=== PATIENT | male | born 1955 | race Caucasian/White ===

== ENCOUNTER → 2017-09-14 14:35 | Outpatient (CLI) | payer BC | END | disposition home or self-care (01) | LOC: D.US 08:00 | DX: R41.0 Disorientation, unspecified (principal); R42 Dizziness and giddiness; R74.9 Abnormal serum enzyme level, unspecified; R10.812 Left upper quadrant abdominal tenderness ==

== ENCOUNTER → 2017-09-17 09:01 | Outpatient (CLI) | payer BC | END | disposition home or self-care (01) | LOC: D.US 09:01 | DX: R74.9 Abnormal serum enzyme level, unspecified (principal); R10.12 Left upper quadrant pain ==

== ENCOUNTER → 2018-06-17 10:33 | Outpatient (CLI) | payer BC | END | disposition home or self-care (01) | LOC: D.MRI 10:33 | DX: M54.12 Radiculopathy, cervical region (principal) ==

== ENCOUNTER 2018-07-05 06:18 | Observation (INO) | payer BC ==
[~2018-07-05] VITALS: Ht 170.2 cm; Wt 79.4 kg
--- NOTE | 2018-07-05 06:35 | NUR ---
URINE SPECIMEN SENT TO LAB.
[2018-07-05 06:56] LABS: BASOPHILS 0.5 % (0-2); EOSINOPHILS 1.8 % (0-7); HEMATOCRIT 45.3 % (42.0-54.0); HEMOGLOBIN 15.9 g/dL (13.5-17.5); IMMATURE GRANULOCYTES 0.7 % (0-5); LYMPHOCYTES 34.6 % (15-50); MCH 31.5 pg (26.0-34.0); MCHC 35.1 g/dL (31.0-37.0); MCV 89.7 fL (80.0-100.0); MEAN PLATELET VOLUME 9.2 fL (7.4-10.4); MONOCYTES 5.9 % (2-11); NEUTROPHILS 56.5 % (40-80); PLATELET COUNT 158 10x3/uL (130-400); RBC 5.05 10x6/uL (4.20-6.10); RDW 12.9 % (11.5-14.5); WBC 5.6 10x3/uL (4.8-10.8)
[2018-07-05 07:08] LABS: APPEARANCE CLEAR (CLEAR); BILIRUBIN NEGATIVE (NEGATIVE); COLOR YELLOW (YELLOW); GLUCOSE NEGATIVE (NEGATIVE); KETONE NEGATIVE (NEGATIVE); NITRITE NEGATIVE (NEGATIVE); PROTEIN NEGATIVE (NEGATIVE); SPECIFIC GRAVITY 1.015 (1.005-1.020); UROBILINOGEN NORMAL (NORMAL)
[2018-07-05 07:09] LABS: ALBUMIN 3.6 g/dL (3.4-5.0); ALKALINE PHOSPHATASE 50 U/L (46-116); ALT (SGPT) 20 U/L (10-68); BILIRUBIN - TOTAL 1.37 mg/dL (0.2-1.3); CALC OSMOLALITY 284 mosm/kg (275-300); CALCIUM 8.4 mg/dL (8.5-10.1); CARBON DIOXIDE 27.9 mmol/L (21.0-32.0); CHLORIDE - SERUM 107 mmol/L (98-107); CREATININE - SERUM 1.1 mg/dL (0.6-1.3); GLUCOSE 100 mg/dL (74-106); POTASSIUM - SERUM 4.2 mmol/L (3.5-5.1); PROTEIN - SERUM 7.1 g/dL (6.4-8.2); SODIUM 142 mmol/L (136-145); UREA NITROGEN 18 mg/dL (7-18); eGFR NON AFRICAN AMERICAN 72 mL/min (90-120)
[2018-07-05 07:20] LABS: LIPASE 102 U/L (73-393); THYROID STIMULATING HORMONE 3.01 uIU/mL (0.36-3.74); TROPONIN-I < 0.017 ng/mL (0.000-0.060)
[2018-07-05 07:24] LABS: AMYLASE - SERUM 961 U/L (25-115)
[2018-07-05 11:30] VITALS: BP 146/87
--- NOTE | 2018-07-05 12:47 | NUR ---
LUNCH TRAY PROV' TO PT. PT DENIES ANY NEEDS AT PRESENT TIME. PT STABLE WITH EQUAL NON LABORED RR.
[2018-07-05 13:30] VITALS: BP 110/83
[2018-07-05 15:30] VITALS: BP 134/82
[2018-07-05 17:30] VITALS: BP 117/88
--- NOTE | 2018-07-05 19:39 | NUR ---
PT AMBULATED TO RESTROOM WITH A STEADY GAIT. NO S/S OF ACUTE DISTRESS NOTED AT THIS TIME. PT SPOUSE AT BEDSIDE.
[2018-07-05 19:42] VITALS: BP 125/85
[2018-07-05 23:20] VITALS: BP 117/80
[2018-07-05] MEDS ORDERED: ASPIRIN EC81 M1 PO (23:20)
[2018-07-06 04:00] VITALS: BP 128/86
--- NOTE | 2018-07-06 06:26 | NUR ---
REPORT CALLED BY MASSIMO IN ER. ARRIVED TO FLOOR IN W/C ACCOMPANIED BY STAFF AND SPOUSE. ALERT AND ORIENTED. NO C/O VOICED THIS SHIFT. WILL CONT. POC.
[2018-07-06 07:38] LABS: BASOPHILS 0.1 % (0-2); EOSINOPHILS 0.1 % (0-7); HEMOGLOBIN 15.1 g/dL (13.5-17.5); IMMATURE GRANULOCYTES 0.2 % (0-5); LYMPHOCYTES 17.3 % (15-50); MCH 31.4 pg (26.0-34.0); MCHC 35.1 g/dL (31.0-37.0); MCV 89.4 fL (80.0-100.0); MEAN PLATELET VOLUME 9.6 fL (7.4-10.4); MONOCYTES 7.2 % (2-11); NEUTROPHILS 75.1 % (40-80); PLATELET COUNT 178 10x3/uL (130-400); RBC 4.81 10x6/uL (4.20-6.10); RDW 13.2 % (11.5-14.5)
[2018-07-06 07:39] LABS: WBC 10.7 10x3/uL (4.8-10.8)
[2018-07-06 07:58] VITALS: BP 149/83
--- NOTE | 2018-07-06 07:58 | NUR ---
SHIFT ASSESSMENT COMPLETED AT THIS TIME. PT IS AAOX3, HR-RRR, PPP, BREATH SOUNDS CLEAR & UNLABORED X2, BOWEL SOUNDS ACTIVE X4. PT DENIES PAIN N/V/D OR NEEDS. PIV TO LT HAND C/D/I WITH NS INFUSING AT 125ML/HR VIA ALARIS PUMP. BED LOW, WHEELS LOCKED, CALL LIGHT AND PHONE WITHIN REACH, SIDE RAILS UP X2.
[2018-07-06 08:05] LABS: ALKALINE PHOSPHATASE 48 U/L (46-116); ALT (SGPT) 18 U/L (10-68); CALC OSMOLALITY 285 mosm/kg (275-300); CALCIUM 7.6 mg/dL (8.5-10.1); CARBON DIOXIDE 23.9 mmol/L (21.0-32.0); CHLORIDE - SERUM 110 mmol/L (98-107); GLUCOSE 105 mg/dL (74-106); POTASSIUM - SERUM 3.7 mmol/L (3.5-5.1); PROTEIN - SERUM 6.2 g/dL (6.4-8.2); SODIUM 143 mmol/L (136-145); UREA NITROGEN 16 mg/dL (7-18); eGFR NON AFRICAN AMERICAN 81 mL/min (90-120)
[2018-07-06 09:03] VITALS: Ht 170.2 cm; Wt 79.4 kg
--- NOTE | 2018-07-06 11:35 | NUR ---
PT AMB ON UNIT AT THIS TIME. DENIES PAIN OR NEEDS.
--- NOTE | 2018-07-06 11:58 | NUR ---
DR ARREDONDO ON UNIT AND TO PT ROOM TO DISCUSS POC.
[2018-07-06] MEDS ORDERED: PROTONIX40 MG PO (12:07)
--- NOTE | 2018-07-06 12:09 | NUR ---
DR ARREDONDO ON UNIT. V/O TO HAVE SED RATE DRAWN AND PT MAY D/C TO HOME ONCE IT IS DRAWN. HE WOULD LIKE RESULTS CALLED TO HIM.
[2018-07-06 13:50] LABS: ERYTHROCYTE SEDIMENTATION RATE 1 mm/hr (0-20)
--- NOTE | 2018-07-06 14:03 | NUR ---
D/C INSTRUCTIONS EXPLAINED, SIGNED, AND WITNESSED. PT OFFERS NO FURTHER QUESTIONS OR CONCERNS. PT AMB OFF UNIT PER REQUEST AND IN NO ACUTE DISTRESS.
== END 2018-07-06 14:03 | disposition home or self-care (01) ==
LOC: D.ER 06:18 → D.EDHOLD 10:57 → D.WS 10:57 → OBSVTIME 10:57 → D.EDHOLD 10:57 → D.WS 20:05
PROVIDERS: Family Medicine; ADMIT Internal Medicine Nephrology
DX: R51 Headache (principal); I10 Essential (primary) hypertension; K21.9 Gastro-esophageal reflux disease without esophagitis; R74.8 Abnormal levels of other serum enzymes

== ENCOUNTER 2018-07-24 02:27 | Observation (INO) | payer BC ==
[~2018-07-24] VITALS: Ht 170.2 cm; Wt 79.5 kg
[~2018-07-24 02:27] MED LIST: ASPIRIN EC81 M1 PO; PROTONIX40 MG PO
[2018-07-24] MEDS ORDERED: MIRALAX17 GM PO (02:35)
[2018-07-24] MEDS ORDERED: KLONOPIN0.5 MG PO (02:35)
[2018-07-24] MEDS ORDERED: LISINOPRIL20 MG PO (02:35)
[2018-07-24 03:35] LABS: BASOPHILS 0.2 % (0-2); EOSINOPHILS 0.3 % (0-7); HEMATOCRIT 46.9 % (42.0-54.0); HEMOGLOBIN 16.6 g/dL (13.5-17.5); IMMATURE GRANULOCYTES 0.5 % (0-5); LYMPHOCYTES 20.6 % (15-50); MCH 31.8 pg (26.0-34.0); MCHC 35.4 g/dL (31.0-37.0); MCV 89.8 fL (80.0-100.0); MEAN PLATELET VOLUME 9.4 fL (7.4-10.4); MONOCYTES 11.1 % (2-11); NEUTROPHILS 67.3 % (40-80); PLATELET COUNT 201 10x3/uL (130-400); RBC 5.22 10x6/uL (4.20-6.10); RDW 13.2 % (11.5-14.5); WBC 11.4 10x3/uL (4.8-10.8)
[2018-07-24 03:38] LABS: APPEARANCE CLEAR (CLEAR); COLOR YELLOW (YELLOW); NITRITE NEGATIVE (NEGATIVE); PROTEIN NEGATIVE (NEGATIVE)
[2018-07-24 03:39] LABS: BILIRUBIN NEGATIVE (NEGATIVE); GLUCOSE NEGATIVE (NEGATIVE); KETONE NEGATIVE (NEGATIVE); UROBILINOGEN NORMAL (NORMAL)
[2018-07-24 03:44] LABS: ALBUMIN 3.6 g/dL (3.4-5.0); ALKALINE PHOSPHATASE 66 U/L (46-116); ALT (SGPT) 39 U/L (10-68); BILIRUBIN - TOTAL 1.25 mg/dL (0.2-1.3); CALC OSMOLALITY 279 mosm/kg (275-300); CALCIUM 8.3 mg/dL (8.5-10.1); CARBON DIOXIDE 26.5 mmol/L (21.0-32.0); CHLORIDE - SERUM 104 mmol/L (98-107); CREATININE - SERUM 1.2 mg/dL (0.6-1.3); GLUCOSE 102 mg/dL (74-106); POTASSIUM - SERUM 4.4 mmol/L (3.5-5.1); PROTEIN - SERUM 7.2 g/dL (6.4-8.2); SODIUM 139 mmol/L (136-145); UREA NITROGEN 18 mg/dL (7-18); eGFR NON AFRICAN AMERICAN 66 mL/min (90-120)
[2018-07-24 03:46] LABS: AMYLASE - SERUM 61 U/L (25-115); LIPASE 83 U/L (73-393)
[2018-07-24 03:47] LABS: TROPONIN-I < 0.017 ng/mL (0.000-0.060)
[2018-07-24 06:42] VITALS: BP 123/66; BMI 27.4
[2018-07-24 08:59] VITALS: BP 124/77
--- NOTE | 2018-07-24 11:11 | NUR ---
ALERT AND ORIENTED COMPLAINING OF RT. FLANK PAIN 08/29. NORC5/325 GIVEN FOR PAIN AND EFFECTIVE. SLIGHT TENDERNESS NOTED TO LEFT FLANK ON PALPATION BS NOTED X 4. ABDOMEN SOFT. ENCOURAGED FLUIDS AND TO USE CALL LIGHT FOR ASSIST.
[2018-07-24 13:20] VITALS: BP 127/77
[2018-07-24 17:21] VITALS: BP 126/81
[2018-07-24 18:21] LABS: ERYTHROCYTE SEDIMENTATION RATE 3 mm/hr (0-20)
--- NOTE | 2018-07-24 19:00 | NUR ---
REPORT RECEIVED AND CARE OF PT ASSUMED. PT LYING IN [place]'S POSITION VISITING WITH FAMILY MEMBERS. IV IN RIGHT FA SALINE LOCKED. WILL MONITOR FOR NEEDS.
[2018-07-24 19:56] VITALS: BP 113/65
--- NOTE | 2018-07-24 22:05 | NUR ---
HS MEDICATIONS GIVEN TO INCLUDE NORCO PO FOR PAIN, PER PRN ORDER. WILL MONITOR FOR EFFECTIVENESS. IS AT BEDSIDE.
[2018-07-25] VITALS: BP 108/63
[2018-07-25 04:00] VITALS: BP 116/76
[2018-07-25 06:33] LABS: BASOPHILS 0.2 % (0-2); EOSINOPHILS 0.2 % (0-7); HEMATOCRIT 43.4 % (42.0-54.0); HEMOGLOBIN 15.2 g/dL (13.5-17.5); IMMATURE GRANULOCYTES 0.9 % (0-5); LYMPHOCYTES 19.5 % (15-50); MCH 31.4 pg (26.0-34.0); MCV 89.7 fL (80.0-100.0); MEAN PLATELET VOLUME 9.5 fL (7.4-10.4); MONOCYTES 11.5 % (2-11); NEUTROPHILS 67.7 % (40-80); PLATELET COUNT 178 10x3/uL (130-400); RBC 4.84 10x6/uL (4.20-6.10); RDW 13.1 % (11.5-14.5); WBC 10.1 10x3/uL (4.8-10.8)
[2018-07-25 06:44] LABS: ANION GAP 14.5 mmol/L (8-16); CALCIUM 8.2 mg/dL (8.5-10.1); CARBON DIOXIDE 24.6 mmol/L (21.0-32.0); CREATININE - SERUM 1.2 mg/dL (0.6-1.3); POTASSIUM - SERUM 4.1 mmol/L (3.5-5.1)
--- NOTE | 2018-07-25 09:08 | NUR ---
ALERT AND ORIENTED WITH PRESENT. RT. FLANK PAIN NOTED ON PALPATION, NORCO 5/325 TAKEN FOR PAIN AND EFFECTIVE. BS HYPOACTIVE WITH POSITIVE FLATULANCE. ENCOURAGED TO AMBULATED. ENCOURAGED USE OF CALL LIGHT FOR ASSIST.
[2018-07-25 16:58] VITALS: BP 100/75
--- NOTE | 2018-07-25 19:15 | NUR ---
RECEIVED CARE FROM DAY NURSE. LYING IN BED WATCHING TV. REPORTS NO NEEDS AT THIS TIME. IV SL TO RIGHT AC.
[2018-07-25 20:00] VITALS: BP 105/58
--- NOTE | 2018-07-26 03:30 | NUR ---
RESTING IN BED RESP UNLABORED NO APPARENT DISTRESS CALL LIGHT IN REACH
[2018-07-26 04:00] VITALS: BP 153/69
[2018-07-26 06:27] LABS: BASOPHILS 0.1 % (0-2); EOSINOPHILS 0.7 % (0-7); HEMATOCRIT 45.3 % (42.0-54.0); IMMATURE GRANULOCYTES 1.1 % (0-5); LYMPHOCYTES 20.3 % (15-50); MCH 31.6 pg (26.0-34.0); MCHC 35.3 g/dL (31.0-37.0); MCV 89.3 fL (80.0-100.0); MEAN PLATELET VOLUME 9.2 fL (7.4-10.4); MONOCYTES 9.9 % (2-11); NEUTROPHILS 67.9 % (40-80); PLATELET COUNT 189 10x3/uL (130-400); RBC 5.07 10x6/uL (4.20-6.10); WBC 9.9 10x3/uL (4.8-10.8)
[2018-07-26 06:50] LABS: ANION GAP 12.4 mmol/L (8-16); CARBON DIOXIDE 28.1 mmol/L (21.0-32.0); CREATININE - SERUM 1.1 mg/dL (0.6-1.3); POTASSIUM - SERUM 4.5 mmol/L (3.5-5.1)
[2018-07-26 08:25] VITALS: BP 105/81
--- NOTE | 2018-07-26 10:20 | NUR ---
ALERT AND ORIENTED WITH PRESENT. LUNGS CTA. SLIGHT TENDERNESS TO LEFT LOWER BACK ON PALPATION. ABDOMEN SLIGHTLY DISTENDED WITH BS NOTED. STATES IS HAVING FLATULANCE. S/L TO RT. A/C WITH NO S/S OF INFECTION.
[2018-07-26] MEDS ORDERED: COLACE100 MG PO (13:27)
[2018-07-26] MEDS ORDERED: HYDROCODON-ACE1 EAC7 PO (13:28)
[2018-07-26 13:31] VITALS: BP 123/82
[2018-07-26 16:50] VITALS: BP 154/77
--- NOTE | 2018-07-26 16:53 | NUR ---
pt. returned to room. stable at this time. family present. resp even and unlabored. arousable to verbal commands.encouraged to use call light for assist
[2018-07-26 17:05] VITALS: BP 106/60
[2018-07-26 20:00] VITALS: BP 105/65
--- NOTE | 2018-07-26 20:00 | NUR ---
PT IS RESTING IN BED WITH EYES CLOSED. OPENED EYES EASILY TO VERBAL STIMULI. DENIES ANY NEEDS AT THIS TIME. ALERT AND ORIENTED X 3. IV INFUSING TO RIGHT AC WITHOUT DIFFICULTY. NO REDNESS OR EDEMA NOTED AT THE INSERTION SITE. SR'S ARE UP X 3 IN BED. CALL LIGHT AND BEDSIDE TABLE ARE WITHIN EASY REACH.
--- NOTE | 2018-07-26 22:30 | NUR ---
PT IS RESTING QUIETLY IN BED WITH EYES CLOSED. RESPS ARE EVEN AND UNLABORED. NO ACUTE DISTRESS NOTED.
--- NOTE | 2018-07-27 00:53 | NUR ---
PT RESTING IN BED WITH EYES CLOSED.
--- NOTE | 2018-07-27 03:23 | NUR ---
PT RESTING QUIETLY IN BED WITH EYES CLOSED. NO ACUTE DISTRESS NOTED.
[2018-07-27 04:00] VITALS: BP 103/68
[2018-07-27 06:12] LABS: BASOPHILS 0.1 % (0-2); EOSINOPHILS 0.9 % (0-7); HEMATOCRIT 41.2 % (42.0-54.0); HEMOGLOBIN 14.5 g/dL (13.5-17.5); IMMATURE GRANULOCYTES 1.5 % (0-5); LYMPHOCYTES 19.4 % (15-50); MCH 31.3 pg (26.0-34.0); MCHC 35.2 g/dL (31.0-37.0); MEAN PLATELET VOLUME 9.2 fL (7.4-10.4); MONOCYTES 10.4 % (2-11); NEUTROPHILS 67.7 % (40-80); PLATELET COUNT 191 10x3/uL (130-400); RBC 4.63 10x6/uL (4.20-6.10); RDW 12.8 % (11.5-14.5)
[2018-07-27 06:18] LABS: WBC 7.4 10x3/uL (4.8-10.8)
[2018-07-27 06:24] LABS: ANION GAP 12.3 mmol/L (8-16); CALCIUM 8.4 mg/dL (8.5-10.1); CARBON DIOXIDE 27.1 mmol/L (21.0-32.0); CREATININE - SERUM 1.2 mg/dL (0.6-1.3); POTASSIUM - SERUM 4.4 mmol/L (3.5-5.1)
[2018-07-27 07:41] VITALS: BP 111/76
--- NOTE | 2018-07-27 08:07 | NUR ---
AWAKE AND ALERT. ORIENTED X3. NO C/O THIS AM. LUNGS ARE CLEAR BILATERALLY, OCCASSIONAL DRY COUGH NOTED. SKIN IS INTACT WITHOUT REDNESS. IV TO RIGHT AC IS PATENT WITHOUT REDNESS AT INSERTION SITE. AT BEDSIDE. DENIES NEEDS.
[2018-07-27 08:30] VITALS: BP 111/76
--- NOTE | 2018-07-27 10:00 | NUR ---
ATE MOST OF BREAKFAST. UP TO BR PER SELF. DENIES NEEDS.
--- NOTE | 2018-07-27 11:25 | MORECARE ---
CASE MANAGEMENT DISCHARGE SUMMARY PATIENT: DAWN LEEGHT UNIT: [id number] ADM DATE: 07/24/18 AGE: 62 : 59 SEX: M ROOM/BED: D.223 AUTHOR: MARY THOMAS PHYSICIAN: REFERRING PHYSICIAN: CORDELL ARREDONDO MD DATE OF SERVICE: 07/27/18 Discharge Plan Patient Name: [facility]WN LEE [facility] [facility] 1955 Planned Disposition: Home Anticipated Discharge Date: Discharge Date: Expected LOS: Initial Reviewer: [email or web address] Initial Review Date: 07/27/2018 Generated: 07/27/18 12:24 pm DCPIA - Discharge Planning Initial Assessment Updated by [email or web address]: Maryse Azul on 07/27/18 11:20 am * Is the patient Alert and Oriented? Yes * How many steps to enter\exit or inside your home? 0/0 * PCP Dr. Phelps * [facility]acy [facility] * Preadmission Environment Home with Family * ADLs Independent * Equipment None * List name and contact numbers for known caregivers / representatives who currently or will assist patient after discharge: Jackie Lee - - [phone] * Verbal permission to speak to the caregivers and representatives has been obtained from the patient. Yes * Community resources currently utilized None * Additional services required to return to the preadmission environment? No * Can the patient safely return to the preadmission environment? Yes * Has this patient been hospitalized within the prior 30 days at any hospital? Yes Patient Name: DAWN LEE Page 57822 at 1125 All edits/amendments must be made on the electronic document DICTATION DATE: 07/27/18 1124 MACHINE SET UP OPERATOR: DANIEL 07/27/18 1124 RPT#: [id number] DC DATE: STATUS: ADM IN [facility] [address] [place] [address] END OF REPORT
--- NOTE | 2018-07-27 11:32 | MORECARE ---
CASE MANAGEMENT DISCHARGE SUMMARY PATIENT: DAWN LEEGHT UNIT: [id number] ADM DATE: 07/24/18 AGE: 62 : 59 SEX: M ROOM/BED: D.2231 AUTHOR: MARY THOMAS PHYSICIAN: REFERRING PHYSICIAN: CORDELL ARREDONDO MD DATE OF SERVICE: 07/27/18 Discharge Plan Patient Name: DAWN LEE Facility: [facility]:[place] : 1955 Planned Disposition: Home Anticipated Discharge Date: Discharge Date: Expected LOS: Initial Reviewer: [email or web address] Initial Review Date: 07/27/2018 Generated: 07/27/18 12:32 pm Comments DCP- Discharge Planning Updated by [email or web address]: Maryse Azul on 07/27/18 10:[address] Patient Name: DAWN LEE Admission Status: ER Accout number: [id number] Admission Date: 07-24-2018 : 1955 Admission Diagnosis: Attending: CORDELL ARREDONDO Current LOS: 3 Anticipated DC Date: Planned Disposition: Home Primary Insurance: [employer] O Discharge Planning Comments: CM met with patient and to discuss discharge planning. He lives with his in a one story home. States he is independent with all ADL's and IADL's. States his will take him home on discharge. Declines need for DME or home health services. CM will continue to follow and assist with discharge planning/needs. Laborer [employer]: Maryse Azul DCPIA - Discharge Planning Initial Assessment Updated by [email or web address]: Maryse Azul on 07/27/18 11:20 am * Is the patient Alert and Oriented? Yes * How many steps to enter\exit or inside your home? 0/0 * PCP Dr. Phelps * [facility] * Preadmission Environment Home with Family * ADLs Independent * Equipment None * List name and contact numbers for known caregivers / representatives who currently or will assist patient after discharge: Jackie Lee - - [phone] * Verbal permission to speak to the caregivers and representatives has been obtained from the patient. Yes * Community resources currently utilized None * Additional services required to return to the preadmission environment? No * Can the patient safely return to the preadmission environment? Yes * Has this patient been hospitalized within the prior 30 days at any hospital? Yes Last DP export: 07/27/18 10:24 am Patient Name: DAWN LEE Page 13623 at 1132 All edits/amendments must be made on the electronic document DICTATION DATE: 07/27/18 113 WORKERS COMPENSATION CLAIMS SPECIALIST: DANIEL 07/27/18 1132 RPT#: [id number] DC DATE: STATUS: ADM IN [facility] [address] [place] [address] END OF REPORT
[2018-07-27 12:30] VITALS: BP 106/74
[2018-07-27 13:49] VITALS: Ht 170.2 cm; Wt 79.5 kg
[2018-07-27] MEDS ORDERED: MACRODANTIN100 MG PO (13:49)
--- NOTE | 2018-07-27 15:22 | MORECARE ---
CASE MANAGEMENT DISCHARGE SUMMARY PATIENT: DAWN LEE UNIT: [id number] ADM DATE: 07/24/18 AGE: 62 : 59 SEX: M ROOM/BED: D.2231 AUTHOR: MARY THOMAS PHYSICIAN: REFERRING PHYSICIAN: CORDELL ARREDONDO MD DATE OF SERVICE: 07/27/18 Discharge Plan Patient Name: DAWN LEE Facility: [facility]:[place] : 1955 Planned Disposition: Home Anticipated Discharge Date: Discharge Date: Expected LOS: Initial Reviewer: [email or web address] Initial Review Date: 07/27/2018 Generated: 07/27/18 4:22 pm Comments DCP- Discharge Planning Updated by [email or web address]: Maryse Azul on 07/27/18 2:[address] Patient Name: DAWN LEE Encounter No: [id number] : 1955 Primary Insurance: [employer] [facility] [place] Anticipated DC Date: Planned Disposition: Home External Planned Provider: : DCP follow-up note: Patient and family in agreement with discharge plan. No changes to plan. Case management will follow and assist as needed. Maryse Azul DCP- Discharge Planning Updated by [email or web address]: Maryse Azul on 07/27/18 10:[address] Patient Name: DAWN LEE Admission Status: ER Accout number: [id number] Admission Date: 07-24-2018 : 1955 Admission Diagnosis: Attending: CORDELL ARREDONDO Current LOS: 3 Anticipated DC Date: Planned Disposition: Home Primary Insurance: [employer] [facility] [place] Discharge Planning Comments: CM met with patient and to discuss discharge planning. He lives with his in a one story home. States he is independent with all ADL's and IADL's. States his will take him home on discharge. Declines need for DME or home health services. CM will continue to follow and assist with discharge planning/needs. Paint Specialist: Maryse Azul DCPIA - Discharge Planning Initial Assessment Updated by [email or web address]: Maryse Azul on 07/27/18 11:20 am * Is the patient Alert and Oriented? Yes * How many steps to enter\exit or inside your home? 0/0 * PCP Dr. Phelps * [facility] * Preadmission Environment Home with Family * ADLs Independent * Equipment None * List name and contact numbers for known caregivers / representatives who currently or will assist patient after discharge: Jackie Lee - - [phone] * Verbal permission to speak to the caregivers and representatives has been obtained from the patient. Yes * Community resources currently utilized None * Additional services required to return to the preadmission environment? No * Can the patient safely return to the preadmission environment? Yes * Has this patient been hospitalized within the prior 30 days at any hospital? Yes Last DP export: 07/27/18 10:32 am Patient Name: DAWN LEE Page 88927 at 1522 All edits/amendments must be made on the electronic document DICTATION DATE: 07/27/181520 HR RECEPTIONIST: DANIEL 07/27/181520 RPT#: [id number] DC DATE: STATUS: ADM IN [facility] [address] [place] [address] END OF REPORT
--- NOTE | 2018-07-27 16:07 | NUR ---
DISCHARGED TO HOME AMBULATORY WITH . DISCHARG INSTRUCTIONS GIVEN BOTH VERBALLY AND WRITTEN. ALL QUESTIONS ANSWERED. PATIENT AND VERBALIZED UNDERSTANDING OF SAME. NEEDED PRESCRIPTIONS GIVEN TO PATIENT. IV TO RIGHT AC D/C WITH CATHETER INTACT. ALL BELONGINGS WITH PATIENT.
--- NOTE | 2018-07-30 08:38 | MORECARE ---
CASE MANAGEMENT DISCHARGE SUMMARY PATIENT: DAWN LEE UNIT: [id number] ADM DATE: 07/24/18 AGE: 62 : 59 SEX: M ROOM/BED: D.2231 AUTHOR: MARY THOMAS PHYSICIAN: REFERRING PHYSICIAN: CORDELL ARREDONDO MD DATE OF SERVICE: 07/30/18 Discharge Plan Patient Name: DAWN LEE Facility: [facility]:[place] : 1955 Planned Disposition: Home Anticipated Discharge Date: Discharge Date: 07/27/2018 Expected LOS: 0 Initial Reviewer: [email or web address] Initial Review Date: 07/27/2018 Generated: 07/30/18 9:38 am Comments DCP- Discharge Planning Updated by [email or web address]: Maryse Azul on 07/27/18 2:[address] Patient Name: DAWN LEE Encounter No: [id number] : 1955 [place] [employer] [facility] [place] DC Date: Planned Disposition: Home External Planned Provider: : DCP follow-up note: Patient and family in agreement with discharge plan. No changes to plan. Case management will follow and assist as needed. Maryse Azul DCP- Discharge Planning Updated by [email or web address]: Maryse Azul on 07/27/18 10:[address] Patient Name: DAWN LEE Admission Status: ER Accout number: [id number] Admission Date: 07-24-2018 : 1955 Admission Diagnosis: Attending: CORDELL ARREDONDO Current LOS: 3 Anticipated DC Date: Planned Disposition: Home [place] [employer] [facility] [place]charge Planning Comments: CM met with patient and to discuss discharge planning. He lives with his in a one story home. States he is independent with all ADL's and IADL's. States his will take him home on discharge. Declines need for DME or home health services. CM will continue to follow and assist with discharge planning/needs. Endo Tech: Maryse Azul DCPIA - Discharge Planning Initial Assessment Updated by [email or web address]: Maryse Azul on 07/27/18 11:20 am * Is the patient Alert and Oriented? Yes * How many steps to enter\exit or inside your home? 0/0 * PCP Dr. Phelps * [facility] * Preadmission Environment Home with Family * ADLs Independent * Equipment None * List name and contact numbers for known caregivers / representatives who currently or will assist patient after discharge: Jackie Lee - - [phone] * Verbal permission to speak to the caregivers and representatives has been obtained from the patient. Yes * Community resources currently utilized None * Additional services required to return to the preadmission environment? No * Can the patient safely return to the preadmission environment? Yes * Has this patient been hospitalized within the prior 30 days at any hospital? Yes Last DP export: 07/27/18 2:22 pm Patient Name: DAWN LEE Page 67157 at 0838 All edits/amendments must be made on the electronic document DICTATION DATE: 07/30/18837 CRANK HAND: DANIEL 07/30/18837 RPT#: [id number] DC DATE:07/27/18 STATUS: DIS IN [facility] [address] [place] [address] END OF REPORT
== END 2018-07-27 16:09 | disposition home or self-care (01) ==
LOC: D.ER 02:27 → D.MS 04:21 → D.EDHOLD 04:21 → D.ER 04:21 → OBSVTIME 04:21 → D.EDHOLD 05:10 → D.MS 05:10 → OBSVTIME 07-26 14:41 → D.MS 07-27 16:09
PROVIDERS: Emergency Medicine; ADMIT Internal Medicine Nephrology
DX: R10.31 Right lower quadrant pain (principal); I10 Essential (primary) hypertension; F41.9 Anxiety disorder, unspecified; K76.9 Liver disease, unspecified; K59.00 Constipation, unspecified; N40.0 Benign prostatic hyperplasia without lower urinary tract symptoms

== ENCOUNTER → 2018-08-09 17:49 | Outpatient (CLI) | payer BC ==
[2018-07-27 13:49] VITALS: BMI 27.4
[~2018-08-09 17:49] MED LIST changes: +COLACE100 MG PO; +HYDROCODON-ACE1 EAC7 PO; +KLONOPIN0.5 MG PO; +LISINOPRIL20 MG PO; +MACRODANTIN100 MG PO; +MIRALAX17 GM PO
== END | disposition home or self-care (01) ==
LOC: D.LABREF 17:49
DX: Z00.00 Encounter for general adult medical examination without abnormal findings (principal)

== ENCOUNTER 2019-04-25 11:05 | Day surgery (SDC) | payer BC ==
[2019-04-22 09:58] LABS: HEMATOCRIT 45.4 % (42.0-54.0); HEMOGLOBIN 15.7 g/dL (13.5-17.5); MCH 31.3 pg (26.0-34.0); MCHC 34.6 g/dL (31.0-37.0); MCV 90.4 fL (80.0-100.0); MEAN PLATELET VOLUME 9.1 fL (7.4-10.4); RBC 5.02 10x6/uL (4.20-6.10); RDW 12.8 % (11.5-14.5)
[2019-04-22 10:11] LABS: CALC OSMOLALITY 282 mosm/kg (275-300); CALCIUM 8.9 mg/dL (8.5-10.1); CHLORIDE - SERUM 105 mmol/L (98-107); GLUCOSE 93 mg/dL (74-106); POTASSIUM - SERUM 4.4 mmol/L (3.5-5.1); SODIUM 141 mmol/L (136-145); UREA NITROGEN 17 mg/dL (7-18); eGFR NON AFRICAN AMERICAN 81 mL/min (90-120)
[~2019-04-25] VITALS: Ht 170.2 cm; Wt 79.4 kg
[~2019-04-25 11:05] MED LIST changes: +LISINOPRIL-HCT1 EAC7 PO; +PRAVACHOL40 MG PO
[2019-04-25] MEDS ORDERED: VOLTAREN75 MG PO (11:12)
[2019-04-25 11:39] VITALS: Ht 170.2 cm; Wt 79.4 kg
--- NOTE | 2019-04-25 11:49 | NUR ---
INFORMED MANAGER OF HOUSEKEEPING OF POSITIVE SUICIDE SCREEN.
--- NOTE | 2019-04-25 12:24 | NUR ---
DR KNOTT NOTIFIED AND REVIEWED PT'S BEHAVIOR AND ASSESSMENT RESULTS. PT IS A LOW RISK PER DR. KNOTT. DR KNOTT STATED TO GIVE RESOURCES TO PT AT TIME OF DISCHARGE. NO FURTHER ORDERS AT THIS TIME. RESOURCES REVIEWED WITH PT AND HE VERBALIZED UNDERSTANDING. PT HAS A POSITIVE OUTLOOK ON LIFE AND DENIES ANY SUICIDAL THOUGHTS.
[2019-04-25] MEDS ORDERED: HYDROCODON-ACE1 EA10 PO (15:07)
--- NOTE | 2019-05-10 15:11 | OP ---
PATIENT NAME: DAWN PLASENCIA MEDICAL RECORD: [id number] :[birth year] LOCATION:D.OPS ADMISSION DATE: SURGEON: LIVIER EAGLE MD DATE OF OPERATION: 04/25/2019 PREOPERATIVE DIAGNOSIS: Impingement syndrome of the left shoulder. POSTOPERATIVE DIAGNOSIS: Impingement syndrome of the left shoulder. PROCEDURES: 1. Left shoulder arthroscopy; arthroscopic distal clavicle excision done through separate incision - 1 cm. 2. Subacromial decompression with acromioplasty and bursectomy. SURGEON: Livier Eagle MD ANESTHESIA: General. INTRAOPERATIVE COMPLICATIONS: None. SUMMARY OF PATHOLOGIC FINDINGS: The patient was indeed found to have severe impingement with attritional changes to the rotator cuff without rotator cuff tearing. The patient also had grade IV changes of the distal clavicle. OPERATIVE SUMMARY IN DETAIL: After obtaining the appropriate preoperative orthopedic surgery consent as well as anesthetic consultation, evaluation and clearance, the patient was brought to the operating room and placed on the operating table in supine position. After adequate general laryngeal mask airway anesthesia was administered and the appropriate time out taken and agreed upon by all, the patient was placed in a right lateral decubitus position. All pressure points were well padded to include down leg peroneal pad as well as the axillary roll. The patient was held firmly to the operating table using the vacuum pack suction system. Left upper extremity and shoulder were then prepped and draped in routine sterile fashion. The arm was held in an Arthrex traction boom at 30 degrees of forward flexion, 30 degrees of abduction with 10 pounds of traction laterally. Arthroscopy was established in the glenohumeral joint from the posterior portal. Diagnostic arthroscopy showed that the patient's glenohumeral space was relatively pristine without evidence of arthritis. Attention was then turned to the subacromial space. While in the subacromial space, accessory lateral portal was created through which the Ola tissue ablation system was utilized to denude the undersurface of the acromion of all soft tissue elements and release the coracoacromial ligament. A 5-0 barrel bur was then used to perform acromioplasty at the level of acromioclavicular joint. Then, through a separate anterior portal, distal clavicle was excised under direct arthroscopic visualization using a 5-0 barrel bur. Lastly, the residual of the bursa was taken down anteriorly, laterally, posterior and superiorly. Attritional change of the rotator cuff were noted; however, there was no full thickness rotator cuff tearing noted. At this point, the arthroscopy portals were then closed in routine interrupted fashion using 4-0 Prolene. Sterile dressings were applied. The patient was awakened, taken to recovery in stable condition. All final needle and sponge counts were correct. TRANSINT:[id number] Voice Confirmation ID: [id number] DOCUMENT ID: [id number] OPERATIVE REPORT [id number] DAWN PLASENCIA MD, LIVIER ACEVES at 1511 CC: [id number] DICTATION DATE: 05/10/19809 [employer] FACTORY WORKER: 05/10/19 0958 [facility] 04/25/19 [id number] [place] [address]
== END 2019-04-25 17:15 | disposition home or self-care (01) ==
LOC: D.OPS 11:05 → D.PAN 15:00 → D.OPS 17:15
PROVIDERS: Anesthesiology; ATTEND Orthopaedic Surgery
DX: M75.102 Unspecified rotator cuff tear or rupture of left shoulder, not specified as traumatic (principal)